=== PATIENT | female | born 1965 | race Caucasian/White ===

== ENCOUNTER 2016-11-07 12:28 | Emergency (ER) | payer OTHER ==
[~2016-11-07] VITALS: Ht 162.6 cm; Wt 66.7 kg
[2016-11-07] MEDS ORDERED: IBUP-23 PO (12:52)
--- NOTE | 2016-11-07 13:40 | NUR ---
Pt family member (who is translating for the pt) states the patient only wants the EKG and pain medication and does not want blood draw and CT scan. was notified and spoke with the patient and family.
[2016-11-07] MEDS ORDERED: HYDROCODONE/APAP 10-325 MG TABLET PO ONE (13:45)
--- NOTE | 2016-11-07 13:54 | NUR ---
Patient does not wish to proceed with medical care recommended by . Patient and family given information related to possible complications, up to and including , which could occur as a result of leaving the hospital at this time. Patient and family verbalizes understanding of risks involved due to leaving against medical advice. Patient has signed AMA form. Patient's family translating for patient.
[2016-11-07] MEDS ORDERED: HYDROCODONE/APAP 10-325 MG TABLET ONE (13:57)
== END 2016-11-07 13:57 | disposition left against medical advice (07) ==
LOC: ER 12:28
DX: M54.5 Low back pain (principal); R07.9 Chest pain, unspecified; R20.9 Unspecified disturbances of skin sensation; F17.200 Nicotine dependence, unspecified, uncomplicated
CPT/HCPCS: 93005; A4663

== ENCOUNTER 2021-10-11 14:28 | Emergency (ER) | payer OTHER ==
[~2021-10-11] VITALS: Ht 160 cm; Wt 58.5 kg
[~2021-10-11 14:28] MED LIST: IBUP-23 PO
--- NOTE | 2021-10-11 15:02 | NUR ---
PT TO RADIOLOGY VIA WHEELCHAIR.
[2021-10-11] MEDS ORDERED: IBUP-1955 PO (16:41)
[2021-10-11] MEDS ORDERED: CYCL10TA9 PO (16:41)
--- NOTE | 2021-10-11 16:45 | NUR ---
TEST RESULTS REVIEWED BY MD WITH PATIENT INCLUDING FOLLOW UP CARE WITH ENT; DISCHARGE INSTRUCTIONS RENDERED AND DISC COPY OF CT SCAN WELL PRINTED COPIES OF LAB RESULTS.
[2021-10-11 16:47] VITALS: BP 109/72
== END 2021-10-11 16:49 | disposition home or self-care (01) ==
LOC: ER 14:32
DX: R09.89 Other specified symptoms and signs involving the circulatory and respiratory systems (principal); M54.2 Cervicalgia; M50.322 Other cervical disc degeneration at C5-C6 level
CPT/HCPCS: 70490; A4663